=== PATIENT | male | born 2005 | race African-American/Black ===

== ENCOUNTER 2024-01-08 05:55 | Emergency (ER) | payer OTHER ==
[~2024-01-08] VITALS: Ht 195.6 cm; Wt 107.8 kg
[2024-01-08 06:00] VITALS: TEMP 98.2
[2024-01-08 06:53] LABS: BASO # 0.1 10^3/uL (0.0-0.2); BASO % 1.2 % (0.0-1.0); EOS # 0.3 10^3/uL (0.0-0.5); EOS % 5.7 % (0.0-3.0); HEMATOCRIT 45.5 % (42.0-52.0); HEMOGLOBIN 15.1 g/dl (13.5-17.5); LYMPH # 2.8 10^3/uL (1.5-5.0); LYMPH % 49.7 % (24.0-44.0); MEAN CORPUSCULAR HEMOGLOBIN 27.5 pg (27.0-33.0); MEAN CORPUSCULAR HGB CONC 33.2 g/dl (32.0-36.5); MEAN CORPUSCULAR VOLUME 82.7 fl (80.0-96.0); MONO # 0.5 10^3/uL (0.0-0.8); MONO % 8.2 % (2.0-8.0); PLATELET COUNT, AUTOMATED 211 10^3/uL (150-450); WHITE BLOOD COUNT 5.6 10^3/uL (4.0-10.0)
[2024-01-08 07:31] VITALS: BP 115/54; O2SAT 98
[2024-01-08] MEDS ORDERED: NAPR-837 PO (07:36)
[2024-01-08] MEDS: KETOROLAC 60MG 2ML VIAL IM ONE (07:40)
[2024-01-08 09:12] LABS: CK-MB VALUE MASS < 1.0 NG/ML (<3.6)
[2024-01-08 09:14] LABS: BLOOD UREA NITROGEN 18 MG/DL (9-23); CALCIUM LEVEL 9.2 MG/DL (8.5-10.1); CARBON DIOXIDE LEVEL 26 MMOL/L (20-31); CHLORIDE LEVEL 105 MMOL/L (98-107); CREATININE FOR GFR 1.01 MG/DL (0.70-1.30); GLUCOSE, FASTING 87 MG/DL (60-100); POTASSIUM SERUM 3.9 MMOL/L (3.5-5.1); SODIUM LEVEL 139 MMOL/L (136-145)
[2024-01-08 09:18] LABS: CPK CREATINE PHOSPHOKINASE 176 U/L (46-171); MB/CK RELATIVE INDEX 0.56 (< OR =4)
== END 2024-01-08 07:46 | disposition home or self-care (01) ==
LOC: M ED 05:55
DX: S29.012A Strain of muscle and tendon of back wall of thorax, initial encounter (principal); S46.812A Strain of other muscles, fascia and tendons at shoulder and upper arm level, left arm, initial encounter; X50.0XXA Overexertion from strenuous movement or load, initial encounter; Z91.013 Allergy to seafood; Z79.1 Long term (current) use of non-steroidal anti-inflammatories (NSAID); Y92.9 Unspecified place or not applicable; Y93.9 Activity, unspecified; Y99.9 Unspecified external cause status

== ENCOUNTER 2024-11-18 23:23 | Emergency (ER) | payer OTHER ==
[~2024-11-18] VITALS: Ht 195.6 cm; Wt 121.0 kg
[~2024-11-18 23:23] MED LIST: NAPR-837 PO
[2024-11-18 23:29] VITALS: BP 125/86; TEMP 97.6; O2SAT 99
[2024-11-19] MEDS: KETOROLAC 60MG 2ML VIAL IM ONE (04:25)
== END 2024-11-19 04:30 | disposition left against medical advice (07) ==
LOC: M ED 23:23
DX: Z53.21 Procedure and treatment not carried out due to patient leaving prior to being seen by health care provider (principal)